=== PATIENT | male | born 1990 | race African-American/Black ===

== ENCOUNTER 2016-06-22 14:00 | Emergency (ER) | payer SELFPAY ==
[~2016-06-22] VITALS: Ht 193 cm; Wt 79.4 kg
[2016-06-22 14:18] VITALS: BP 141/74
[2016-06-22 14:52] LABS: BILIRUBIN,URINE NEGATIVE (NEG); GLUCOSE,URINE NEGATIVE (NEG); NITRITE,URINE NEGATIVE (NEG); PH,URINE 8.5; PROTEIN,URINE NEGATIVE (NEG-TRACE)
[2016-06-22 15:00] LABS: RBC,URINE RARE /HPF (0-2)
[2016-06-22 15:01] LABS: BACTERIA,URINE 0 /HPF (0-FEW); SQUAMOUS EPITHELIAL CELL,UR OCC /LPF; WBC,URINE 20-40 /HPF (0-4)
[2016-06-22] MEDS ORDERED: DOXY100C2 PO (15:40)
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
[2016-06-22] MEDS ORDERED: DOXYCYCLINE HYCLATE 100 MG TABLET PO ONE (15:45)
[2016-06-22] MEDS ORDERED: CEFTRIAXONE IM 250 MG VIAL. IM ONE (15:45)
--- NOTE | 2016-06-24 16:03 | VNOTE ---
CALL BACK NOTE CALL BACK Microbiology 06/22/16 Urine Culture - Final, Complete 06/22/16 Urine Culture Result 1 (RACHNA) - Final, Complete Patient's STI test returned positive for gonorrhea. I contacted him to make him aware of the positive result. He is instructed to inform any sexual partners so they may be tested and treated as well. He is instructed to abstain from intercourse until 1 week after both himself and his partner have been treated. He verbalizes understanding. All questions were answered to his satisfaction. RITA GARCIA Jun 24, 2016 16:03
== END 2016-06-22 16:13 | disposition home or self-care (01) ==
LOC: ER 14:00
DX: A64 Unspecified sexually transmitted disease (principal)
CPT/HCPCS: 81001; 87086; 87491; 87591; 99284

== ENCOUNTER 2016-09-13 20:18 | Emergency (ER) | payer SELFPAY ==
[~2016-09-13] VITALS: Ht 193 cm; Wt 79.4 kg
[~2016-09-13 20:18] MED LIST: DOXY100C2 PO
[2016-09-13 20:40] VITALS: BP 138/95
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
[2016-09-13] MEDS ORDERED: DIPHTH,PERTUSS(ACELL),TET TOX 0.5 ML DISP.SYRIN. VAX IM ONE (21:30)
[2016-09-13] MEDS ORDERED: LIDOCAINE 1% / SOD BICARB 8.4% 20 ML VIAL. IJ ONE (21:30)
== END 2016-09-13 22:23 | disposition home or self-care (01) ==
LOC: ER 20:18
DX: S61.214A Laceration without foreign body of right ring finger without damage to nail, initial encounter (principal); W25.XXXA Contact with sharp glass, initial encounter; Y93.89 Activity, other specified; Y99.8 Other external cause status; Y92.89 Other specified places as the place of occurrence of the external cause
CPT/HCPCS: 12001; 90471; 90715; 99283-25

== ENCOUNTER 2016-09-24 22:49 | Emergency (ER) | payer SELFPAY ==
[~2016-09-24] VITALS: Ht 193 cm; Wt 79.4 kg
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
[2016-09-24 23:00] VITALS: BP 145/95
== END 2016-09-24 23:00 | disposition home or self-care (01) ==
LOC: ER 22:49
DX: S61.411D Laceration without foreign body of right hand, subsequent encounter (principal); X58.XXXD Exposure to other specified factors, subsequent encounter; Y92.89 Other specified places as the place of occurrence of the external cause; Y99.8 Other external cause status
CPT/HCPCS: 99281

== ENCOUNTER 2017-08-07 15:00 | Emergency (ER) | payer SELFPAY ==
[2017-08-07] MEDS: KETOROLAC 60 MG/2 ML INJ. IM ×2 (17:07)
== END 2017-08-07 17:59 | disposition home or self-care (01) ==
LOC: ER 15:00
DX: R51 Headache (principal); F41.9 Anxiety disorder, unspecified; F12.10 Cannabis abuse, uncomplicated
CPT/HCPCS: 96372; 99283; J1885

== ENCOUNTER 2017-11-19 15:08 | Emergency (ER) | payer SELFPAY | END 2017-11-19 15:44 | disposition home or self-care (01) | LOC: ER 15:08 | DX: K02.9 Dental caries, unspecified (principal); F41.9 Anxiety disorder, unspecified; Z88.5 Allergy status to narcotic agent | CPT/HCPCS: 99283 ==

== ENCOUNTER 2018-01-03 14:26 | Emergency (ER) | payer SELFPAY ==
[2018-01-03] MEDS: cefTRIAXone IM 250 MG VIAL IM (16:06)
[2018-01-03] MEDS: AZITHROMYCIN 250 MG TABLET. PO (16:06)
== END 2018-01-03 16:31 | disposition home or self-care (01) ==
LOC: ER 14:26
DX: S02.5XXA Fracture of tooth (traumatic), initial encounter for closed fracture (principal); A64 Unspecified sexually transmitted disease; F41.9 Anxiety disorder, unspecified; F17.200 Nicotine dependence, unspecified, uncomplicated; F10.10 Alcohol abuse, uncomplicated; Z88.5 Allergy status to narcotic agent; X58.XXXA Exposure to other specified factors, initial encounter; Y93.89 Activity, other specified; Y92.89 Other specified places as the place of occurrence of the external cause; Y99.8 Other external cause status
CPT/HCPCS: 87491; 87591; 96372; 99284; J0696; Q0144

== ENCOUNTER 2018-03-30 12:41 | Emergency (ER) | payer SELFPAY ==
[~2018-03-30] VITALS: Ht 190.5 cm; Wt 78.0 kg
[~2018-03-30 12:41] MED LIST changes: +AMOX500C PO; +HYDR-971 PO
[2018-03-30 12:51] VITALS: BP 146/101
[2018-03-30 13:31] LABS: BILIRUBIN,URINE NEGATIVE (NEG); CLARITY,URINE CLEAR; COLOR,URINE YELLOW; NITRITE,URINE NEGATIVE (NEG); PH,URINE 6.5; PROTEIN,URINE NEGATIVE (NEG-TRACE); UROBILINOGEN,URINE 0.2 mg/dL (0.2 mg/dL)
[2018-03-30 13:48] LABS: BACTERIA,URINE 0 /HPF (0-FEW); RBC,URINE 0 /HPF (0-2)
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
[2018-03-30] MEDS ORDERED: AZITHROMYCIN 250 MG TABLET. PO ONE (14:30)
[2018-03-30] MEDS ORDERED: cefTRIAXone IM 250 MG VIAL IM ONE (14:30)
== END 2018-03-30 14:53 | disposition home or self-care (01) ==
LOC: ER 12:41
DX: R30.0 Dysuria (principal); Z20.2 Contact with and (suspected) exposure to infections with a predominantly sexual mode of transmission; F17.210 Nicotine dependence, cigarettes, uncomplicated; F10.20 Alcohol dependence, uncomplicated; F90.9 Attention-deficit hyperactivity disorder, unspecified type; Z88.5 Allergy status to narcotic agent
CPT/HCPCS: 81001; 87086; 87491; 87591; 99284; Q0144

== ENCOUNTER 2018-04-03 16:15 | Emergency (ER) | payer SELFPAY ==
[~2018-04-03] VITALS: Ht 193 cm; Wt 77.1 kg
[2018-04-03 16:28] VITALS: BP 129/77
[2018-04-03] MEDS ORDERED: OFLO5DRO EACHEYE (16:42)
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
== END 2018-04-03 16:53 | disposition home or self-care (01) ==
LOC: ER 16:15
DX: H10.89 Other conjunctivitis (principal); Z88.5 Allergy status to narcotic agent
CPT/HCPCS: 99283

== ENCOUNTER 2018-04-16 19:40 | Emergency (ER) | payer SELFPAY ==
[~2018-04-16 19:40] MED LIST changes: +OFLO5DRO EACHEYE
== END 2018-04-16 20:20 | disposition left against medical advice (07) ==
LOC: ER 19:40
DX: S40.261A Insect bite (nonvenomous) of right shoulder, initial encounter (principal); S40.861A Insect bite (nonvenomous) of right upper arm, initial encounter; Z53.21 Procedure and treatment not carried out due to patient leaving prior to being seen by health care provider; W57.XXXA Bitten or stung by nonvenomous insect and other nonvenomous arthropods, initial encounter; Y93.89 Activity, other specified; Y92.89 Other specified places as the place of occurrence of the external cause; Y99.8 Other external cause status

== ENCOUNTER 2018-08-02 14:32 | Emergency (ER) | payer SELFPAY ==
[~2018-08-02] VITALS: Ht 190.5 cm; Wt 74.8 kg
[~2018-08-02 14:32] MED LIST changes: +HYDR-3164 PO; -HYDR-971 PO
[2018-08-02 14:50] VITALS: BP 148/90
[2018-08-02 15:27] LABS: BILIRUBIN,URINE NEGATIVE (NEG); CLARITY,URINE CLEAR; COLOR,URINE YELLOW; NITRITE,URINE NEGATIVE (NEG); PROTEIN,URINE NEGATIVE (NEG-TRACE)
[2018-08-02] MEDS ORDERED: AZITHROMYCIN 250 MG TABLET. PO ONE (15:30)
[2018-08-02] MEDS ORDERED: cefTRIAXone IM 250 MG VIAL IM ONE (15:30)
--- NOTE | 2018-08-02 15:32 | PHYS DOC ---
Past Medical History Past Medical History: No Pertinent History Additional Past Medical Histor: per patient (PHI LUXABRAHAM Koch [employer]) Past Surgical History: Other Additional Past Surgical Histo: BACK (MACIJUN [employer]) Alcohol Use: Occasionally Drug Use: Marijuana ([employer]) Adult General Chief Complaint Chief Complaint: SEXUALLY TRANSMITTED DISEASE HPI HPI Patient is a 28 year old male who presents with 2 days of white penile discharge but denies any burning or dysuria symptoms. ([employer]) Review of Systems Review of Systems Constitutional: Denies fever or chills [] Eyes: Denies change in visual acuity, redness, or eye pain [] HENT: Denies nasal congestion or sore throat [] Respiratory: Denies cough or shortness of breath [] Cardiovascular: No additional information not addressed in HPI [] GI: Denies abdominal pain, nausea, vomiting, bloody stools or diarrhea [] : White penile discharge. Denies dysuria or hematuria [] Musculoskeletal: Denies back pain or joint pain [] Integument: Denies rash or skin lesions [] Neurologic: Denies headache, focal weakness or sensory changes [] All other systems were reviewed and found to be within normal limits, except as documented in this note. (AVILAJUN [employer]) Current Medications Current Medications Current Medications Medications (Trade) Dose Ordered Sig/Varun Start Time Stop Time Status Last Admin Dose Admin Azithromycin (Zithromax) 1,000 mg 1X ONCE 08/02/18 15:30 08/02/18 15:31 DC 08/02/18 15:43 1,000 MG Ceftriaxone Sodium (Rocephin Im) 250 mg 1X ONCE 08/02/18 15:30 08/02/18 15:31 DC 08/02/18 15:43 250 MG (FATOUMATA ESTES MD) Allergies Allergies Allergies Coded Allergies Type Severity Reaction Last Updated Verified morphine Allergy Unknown 11/19/17 Yes (FATOUMATA ESTES MD) Physical Exam Physical Exam Constitutional: Well developed, well nourished, no acute distress, non-toxic appearance. [] HENT: Normocephalic, atraumatic, bilateral external ears normal, oropharynx moist, no oral exudates, nose normal. [] Eyes: PERRLA, EOMI, conjunctiva normal, no discharge. [] Neck: Normal range of motion, no tenderness, supple, no stridor. [] Cardiovascular:Heart rate regular rhythm, no murmur [] Lungs & Thorax: Bilateral breath sounds clear to auscultation [] Abdomen: Bowel sounds normal, soft, no tenderness, no masses, no pulsatile masses. [] Skin: Warm, dry, no erythema, no rash. [] Back: No tenderness, no CVA tenderness. [] Extremities: No tenderness, no cyanosis, no clubbing, ROM intact, no edema. [] Neurologic: Alert and oriented X 3, normal motor function, normal sensory function, no focal deficits noted. [] Psychologic: Affect normal, judgement normal, mood normal. Normal exam[] (JUN LUX APRN) Current Patient Data Vital Signs Vital Signs Date Time Temp Pulse Resp B/P (MAP) Pulse Ox O2 Delivery O2 Flow Rate FiO2 08/02/18 14:50 98.5 68 18 148/90 (109) 99 Room Air 98.5 (FATOUMATA ESTES MD) Lab Values Laboratory Tests Test 08/02/18 14:39 Urine Color Yellow Urine Clarity Clear Urine pH 7.0 Urine Specific [place] 1.025 Urine Protein Negative mg/dL (NEG-TRACE) Urine Glucose (UA) Negative mg/dL (NEG) Urine Ketones (Stick) Negative mg/dL (NEG) Urine Blood Negative (NEG) Urine Nitrite Negative (NEG) Urine Bilirubin Negative (NEG) Urine Urobilinogen Dipstick 1.0 mg/dL (0.2 mg/dL) Urine Leukocyte Esterase Negative (NEG) Urine RBC 0 /HPF (0-2) Urine WBC Occ /HPF (0-4) Urine Squamous Epithelial Cells Occ /LPF Urine Bacteria 0 /HPF (0-FEW) Urine Mucus Slight /LPF (FATOUMATA ESTES MD) EKG EKG [] (JUN LUX APRN) Radiology/Procedures Radiology/Procedures [] (JUN LUX APRN) Course & Med Decision Making Course & Med Decision Making Patient is a 28 year old male who presents with 2 days of white penile discharge but denies any burning or dysuria symptoms. Alert and oriented. Afebrile. Denies dysuria symptoms. Denies any nausea vomiting or abdominal pain. Patient states he does not know if any of his sexual partners have been diagnosed with any sexually transmitted diseases but he is just started having the symptoms. There is no lesions to the genitals. Patient is treated for Chlamydia and gonorrhea. Patient is told that his urine test will come back in 48 hours and they will call him if the findings are positive. (JUN LUX APRN) Course & Med Decision Making Staff Physician Addendum: I was working in the ER during the course of this patient's visit. I was available for consultation as needed, but I was not directly involved in the care of this patient. (FATOUMATA ESTES MD) Dragon Disclaimer Dragon Disclaimer This electronic medical record was generated, in whole or in part, using a voice recognition dictation system. (JUN LUX APRN) Departure Departure Impression: Primary Impression: Sexually transmitted infection Disposition: 01 HOME, SELF-CARE Condition: STABLE Referrals: NO PCP (PCP) Patient Instructions: Sexually Transmitted Disease Additional Instructions: Follow-up her primary care provider needed. He'll be called in 48 hours. Results are positive. He is been treated today for sexual transmitted diseases. JUN LUX APRN Aug 02, 2018 15:32 FATOUMAAT ESTES MD Aug 03, 2018 06:42
[2018-08-02 15:52] LABS: BACTERIA,URINE 0 /HPF (0-FEW); RBC,URINE 0 /HPF (0-2); SQUAMOUS EPITHELIAL CELL,UR OCC /LPF; WBC,URINE OCC /HPF (0-4)
== END 2018-08-02 16:05 | disposition home or self-care (01) ==
LOC: ER 14:32
DX: A64 Unspecified sexually transmitted disease (principal); Z88.5 Allergy status to narcotic agent; A63.8 Other specified predominantly sexually transmitted diseases
CPT/HCPCS: 81001; 87491; 87591; 96372; 99283; J0696; Q0144

== ENCOUNTER 2018-11-24 12:06 | Emergency (ER) | payer SELFPAY ==
[~2018-11-24] VITALS: Ht 190.5 cm; Wt 78.2 kg
[2018-11-24 12:17] VITALS: BP 119/68
--- NOTE | 2018-11-24 12:41 | PHYS DOC ---
Past Medical History Past Medical History: No Pertinent History Additional Past Medical Histor: per patient Past Surgical History: Other Additional Past Surgical Histo: BACK Additional Information: 5-6 cigarettes daily Alcohol Use: Occasionally Drug Use: Marijuana Adult General Chief Complaint Chief Complaint: SEXUALLY TRANSMITTED DISEASE HPI HPI Patient is a 28 year old female with no significant medical history who presents to the ED today complaining of pain on discharge for couple days, patient would like to be tested and treated for STDs. Review of Systems Review of Systems Constitutional: Denies fever or chills [] : Reports penile discharge. Denies dysuria or hematuria [] Musculoskeletal: Denies back pain or joint pain [] Integument: Denies rash or skin lesions [] Neurologic: Denies headache, focal weakness or sensory changes [] All other systems were reviewed and found to be within normal limits, except as documented in this note. Current Medications Current Medications Current Medications Medications (Trade) Dose Ordered Sig/Varun Start Time Stop Time Status Last Admin Dose Admin Azithromycin (Zithromax) 1,000 mg 1X ONCE 11/24/18 12:45 11/24/18 12:46 Ceftriaxone Sodium (Rocephin Im) 250 mg 1X ONCE 11/24/18 12:45 11/24/18 12:46 Metronidazole (Flagyl) 2,000 mg 1X ONCE 11/24/18 12:45 11/24/18 12:46 Allergies Allergies Allergies Coded Allergies Type Severity Reaction Last Updated Verified morphine Allergy Unknown 11/19/17 Yes Physical Exam Physical Exam Constitutional: Well developed, well nourished, no acute distress, non-toxic appearance. [] Abdomen: Bowel sounds normal, soft, no tenderness, no masses, no pulsatile masses. [] Male exam: Reports penile discharge Skin: Warm, dry, no erythema, no rash. [] Back: No tenderness, no CVA tenderness. [] Extremities: No tenderness, no cyanosis, no clubbing, ROM intact, no edema. [] Neurologic: Alert and oriented X 3, normal motor function, normal sensory function, no focal deficits noted. [] Psychologic: Affect normal, judgement normal, mood normal. [] Current Patient Data Vital Signs Vital Signs Date Time Temp Pulse Resp B/P (MAP) Pulse Ox O2 Delivery O2 Flow Rate FiO2 11/24/18 12:17 98.6 86 16 119/68 (85) 98 Room Air 98.6 EKG EKG [] Radiology/Procedures Radiology/Procedures [] Course & Med Decision Making Course & Med Decision Making Pertinent Labs and Imaging studies reviewed. (See chart for details) This is a 28-year-old male patient presented to the ED today with concern for STDs, requesting treatment. Patient was given prophylaxis treatment. Patient provided. Discharged to home. Dragon Disclaimer Dragon Disclaimer This electronic medical record was generated, in whole or in part, using a voice recognition dictation system. Departure Departure Impression: Primary Impression: Concern about STD in male without diagnosis Disposition: 01 HOME, SELF-CARE Condition: STABLE Referrals: NO PCP (PCP) follow up with the health department as needed for further STD concerns Patient Instructions: Sexually Transmitted Disease Additional Instructions: You were treated prophylaxis for sexually transmitted diseases, do not have sex for 2 weeks. Use protection after that. Contact all your sex partners, let them know you were treated for STDs and ask them to seek treatment too. KASEY STEVENS APRN Nov 24, 2018 12:41
[2018-11-24] MEDS ORDERED: metroNIDAZOLE 500 MG TABLET PO ONE (12:45)
[2018-11-24] MEDS ORDERED: cefTRIAXone IM 250 MG VIAL IM ONE (12:45)
[2018-11-24] MEDS ORDERED: AZITHROMYCIN 250 MG TABLET. PO ONE (12:45)
[2018-11-24 12:54] LABS: BILIRUBIN,URINE NEGATIVE (NEG); CLARITY,URINE CLEAR; COLOR,URINE YELLOW; NITRITE,URINE NEGATIVE (NEG); PROTEIN,URINE NEGATIVE (NEG-TRACE)
[2018-11-24 13:09] LABS: BACTERIA,URINE 0 /HPF (0-FEW); RBC,URINE 0 /HPF (0-2); WBC,URINE TNTC /HPF (0-4)
== END 2018-11-24 13:10 | disposition home or self-care (01) ==
LOC: ER 12:06
DX: R36.9 Urethral discharge, unspecified (principal); Z20.2 Contact with and (suspected) exposure to infections with a predominantly sexual mode of transmission; F17.210 Nicotine dependence, cigarettes, uncomplicated; Z88.5 Allergy status to narcotic agent
CPT/HCPCS: 81001; 87491; 87591; 96372; 99284; J0696; Q0144

== ENCOUNTER 2019-04-10 12:12 | Emergency (ER) | payer SELFPAY ==
[~2019-04-10] VITALS: Ht 193 cm; Wt 81.6 kg
[2019-04-10 12:44] VITALS: BP 148/78
[2019-04-10] MEDS ORDERED: LIDOCAINE 2% VISCOUS 15 ML SOLUTION. SWSW ONE (13:30)
[2019-04-10] MEDS ORDERED: AMOX1TAB61 PO (13:32)
--- NOTE | 2019-04-10 13:32 | PHYS DOC ---
Past Medical History Past Medical History: No Pertinent History Additional Past Medical Histor: per patient (LISA ARGUETA APRN) Past Surgical History: Other Additional Past Surgical Histo: Back Surgery (LISA ARGUETA APRN) Alcohol Use: Occasionally Drug Use: Marijuana (LISA ARGUETA APRN) Attending Signature I have participated in the care of this patient and I have reviewed and agree with all pertinent clinical information above including history, exam, and recommendations. (NALDO LESTER MD) Adult General Chief Complaint Chief Complaint: DENTAL PROBLEM HPI HPI Patient is a 29 year old male who presents with left facial swelling and dental pain has been ongoing for 5 days. He rates his pain a 7 out of 10 in severity and sharp. Denies fever. (LISA ARGUETA APRN) Review of Systems Review of Systems Constitutional: Denies fever or chills [] Eyes: Denies change in visual acuity, redness, or eye pain [] HENT: Reports Dental pain. Respiratory: Denies cough or shortness of breath [] Cardiovascular: No additional information not addressed in HPI [] GI: Denies abdominal pain, nausea, vomiting, bloody stools or diarrhea [] : Denies dysuria or hematuria [] Musculoskeletal: Denies back pain or joint pain [] Integument: Denies rash or skin lesions [] Neurologic: Denies headache, focal weakness or sensory changes [] Endocrine: Denies polyuria or polydipsia [] Complete systems were reviewed and found to be within normal limits, except as documented in this note. (LISA ARGUETA APRN) Current Medications Current Medications Current Medications Medications (Trade) Dose Ordered Sig/Varun Start Time Stop Time Status Last Admin Dose Admin Lidocaine HCl (Viscous Lidocaine) 15 ml 1X ONCE 04/10/19 13:30 04/10/19 13:31 DC 04/10/19 13:25 15 ML (NALDO LESTER MD) Allergies Allergies Allergies Coded Allergies Type Severity Reaction Last Updated Verified morphine Allergy Intermediate 04/10/19 Yes (NALDO LESTER MD) Physical Exam Physical Exam Constitutional: Well developed, well nourished, no acute distress, non-toxic appearance. [] HENT: Normocephalic, atraumatic, bilateral external ears normal, oropharynx moist, no oral exudates, nose normal. Dental infection to tooth # 17 Eyes: PERRLA, EOMI, conjunctiva normal, no discharge. [] Neck: Normal range of motion, no tenderness, supple, no stridor. [] Cardiovascular:Heart rate regular rhythm, no murmur [] Lungs & Thorax: Bilateral breath sounds clear to auscultation [] Abdomen: Bowel sounds normal, soft, no tenderness, no masses, no pulsatile masses. [] Skin: Warm, dry, no erythema, no rash. [] Back: No tenderness, no CVA tenderness. [] Extremities: No tenderness, no cyanosis, no clubbing, ROM intact, no edema. [] Neurologic: Alert and oriented X 3, normal motor function, normal sensory function, no focal deficits noted. [] Psychologic: Affect normal, judgement normal, mood normal. [] (LISA ARGUETA APRN) Current Patient Data Vital Signs Vital Signs Date Time Temp Pulse Resp B/P (MAP) Pulse Ox O2 Delivery O2 Flow Rate FiO2 04/10/19 12:44 98.7 78 18 148/78 (101) 99 Room Air 98.7 (NALDO LESTER MD) EKG EKG [] (LISA ARGUETA APRN) Radiology/Procedures Radiology/Procedures [] (LISA ARGUETA APRN) Course & Med Decision Making Course & Med Decision Making Pertinent Labs and Imaging studies reviewed. (See chart for details) Will give Lidocaine for pain and will place on Augmentin. Discussed with patient the need to follow up with dentist. (LISA ARGUETA APRN) Dragon Disclaimer Dragon Disclaimer This electronic medical record was generated, in whole or in part, using a voice recognition dictation system. (LISA ARGUETA APRN) Departure Departure Impression: Primary Impression: Pain, dental Disposition: HOME, SELF-CARE Condition: STABLE Referrals: NO PCP (PCP) Patient Instructions: Carbamide Peroxide dental solution, Dental Caries Additional Instructions: Thank you for visiting [facility]. We appreciate you trusting us with your care. If any additional problems come up don't hesitate to return to visit us. Please follow up with your primary care provider so they can plan additional care if needed and know about the problem that you had. If symptoms worsen come back to the Emergency Department. Any concerning symptoms that start such as chest pain, shortness of air, weakness or numbness on one side of the body, running high fevers or any other concerning symptoms return to the ER. You have been prescribed an antibiotic today to help fight your infection. Please take all of the antibiotic as directed. If after 48 hours the infection is not improving, please return for more care. If the infection worsens, return to ER for additional care. Scripts Amoxicillin/Potassium Clav (AUGMENTIN 875-125 TABLET) 1 Each Tablet 1 TAB PO BID for 7 Days, #14 TAB 0 Refills Prov: LISA ARGUETA APRN 04/10/19 LISA ARGUETA APRN Apr 10, 2019 13:32 NALDO LESTER MD Apr 13, 2019 06:12
== END 2019-04-10 13:35 | disposition home or self-care (01) ==
LOC: ER 12:12
DX: K08.89 Other specified disorders of teeth and supporting structures (principal); Z88.5 Allergy status to narcotic agent
CPT/HCPCS: 99283

== ENCOUNTER 2019-07-09 20:47 | Emergency (ER) | payer SELFPAY ==
[~2019-07-09] VITALS: Ht 193 cm; Wt 81.2 kg
[~2019-07-09 20:47] MED LIST changes: +AMOX1TAB61 PO
[2019-07-09 20:58] VITALS: BP 145/97
--- NOTE | 2019-07-09 21:58 | PHYS DOC ---
Past Medical History Past Medical History: No Pertinent History Additional Past Medical Histor: per patient Past Surgical History: Other Additional Past Surgical Histo: Back Surgery Alcohol Use: Occasionally Drug Use: Marijuana Adult General Chief Complaint Chief Complaint: SEXUALLY TRANSMITTED DISEASE HPI HPI Patient is a 29 year old male who presents with penile discharge. The patient states he is concerned that he has an STD. Denies any other symptoms. Complete ROS were reviewed and found to be within normal limits, except as documented in the HPI Allergies Allergies Allergies Coded Allergies Type Severity Reaction Last Updated Verified morphine Allergy Intermediate 04/10/19 Yes Physical Exam Physical Exam Constitutional: Well developed, well nourished, no acute distress, non-toxic appearance. [] HENT: Normocephalic, atraumatic, bilateral external ears normal, oropharynx moist, no oral exudates, nose normal. [] Eyes: PERRLA, EOMI, conjunctiva normal, no discharge. [] Neurologic: Alert and oriented X 3, normal motor function, normal sensory function, no focal deficits noted. [] Psychologic: Affect normal, judgement normal, mood normal. [] Current Patient Data Vital Signs Vital Signs Date Time Temp Pulse Resp B/P (MAP) Pulse Ox O2 Delivery O2 Flow Rate FiO2 07/09/19 20:58 98.7 101 18 145/97 (113) 99 Room Air 98.7 EKG EKG [] Radiology/Procedures Radiology/Procedures [] Course & Med Decision Making Course & Med Decision Making Pertinent Labs and Imaging studies reviewed. (See chart for details) A medical screening exam was performed on this patient and the patient does not appear to be having a medical emergency. Her symptoms are not of sufficient severity and within reasonable medical probability it is unlikely the absence of immediate medical attention would result in placing the health of the individual (or, with respect to a woman, the health of the woman or her unborn child) in serious jeopardy, serious impairment to bodily functions, or serious dysfunction of any bodily organ or part. If , the patient is not in labor Dragon Disclaimer Dragon Disclaimer This electronic medical record was generated, in whole or in part, using a voice recognition dictation system. Departure Departure Impression: Primary Impression: Encounter for medical screening examination Disposition: HOME, SELF-CARE Condition: STABLE Referrals: NO PCP (PCP) Patient Instructions: Medical Screening Exam Additional Instructions: Thank you for visiting [facility]. We appreciate you trusting us with your care. If any additional problems come up don't hesitate to return to visit us. Please follow up with your primary care provider so they can plan additional care if needed and know about the problem that you had. If symptoms worsen come back to the Emergency Department. Any concerning symptoms that start such as chest pain, shortness of air, weakness or numbness on one side of the body, running high fevers or any other concerning symptoms return to the ER. LISA ARGUETA APRN Jul 09, 2019 21:58
== END 2019-07-09 21:35 | disposition home or self-care (01) ==
LOC: ER 20:47
DX: R36.9 Urethral discharge, unspecified (principal); F12.90 Cannabis use, unspecified, uncomplicated; Z98.890 Other specified postprocedural states; Z88.6 Allergy status to analgesic agent
CPT/HCPCS: 99281

== ENCOUNTER 2020-05-06 10:32 | Emergency (ER) | payer SELFPAY ==
[~2020-05-06] VITALS: Ht 193 cm; Wt 79.5 kg
[2020-05-06 10:42] VITALS: BP 140/89
[2020-05-06] MEDS ORDERED: IBUPROFEN 200 MG TABLET. PO ONE (11:15)
[2020-05-06] MEDS ORDERED: AMOXICILLIN/K CLAV 875/125MG TABLET. PO ONE (11:15)
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
[2020-05-06] MEDS ORDERED: AMOX1TAB61 PO (11:48)
== END 2020-05-06 12:00 | disposition home or self-care (01) ==
LOC: ER 10:32
DX: S61.452A Open bite of left hand, initial encounter (principal); S63.631A Sprain of interphalangeal joint of left index finger, initial encounter; F17.200 Nicotine dependence, unspecified, uncomplicated; F12.90 Cannabis use, unspecified, uncomplicated; F10.10 Alcohol abuse, uncomplicated; Z98.890 Other specified postprocedural states; Z88.6 Allergy status to analgesic agent; W50.3XXA Accidental bite by another person, initial encounter; Y93.89 Activity, other specified; Y92.89 Other specified places as the place of occurrence of the external cause; Y99.8 Other external cause status
CPT/HCPCS: 29130; 73130; 99283